=== PATIENT | male | born 1970 | race Caucasian/White ===

== ENCOUNTER → 2019-03-12 | Outpatient (CLI) | payer MEDICARE ==
--- NOTE | 2019-03-12 16:41 | RAD ---
CLINICAL HISTORY: bilateral edema COMPARISON: None available. TECHNIQUE: Ultrasound evaluation of both legs was performed from the groin to the upper calf with vergara scale, spectral and color doppler evaluation. FINDINGS: The bilateral common femoral vein, and femoral vein, including the saphenous-femoral junction are normal in appearance. Color and spectral Doppler evaluation demonstrates normal spontaneous flow, augmentation and phasicity. The bilateral popliteal vein and visualized calf veins also demonstrate normal compressibility and flow. IMPRESSION: No evidence for bilateral lower extremity DVT. Electronically signed by: Thomas Knott MD (03/12/2019 4:38 PM) [id number]
== END | disposition home or self-care (01) ==
LOC: US 14:41
PROVIDERS: ATTEND Internal Medicine
DX: R60.0 Localized edema (principal)
CPT/HCPCS: 93970

== ENCOUNTER 2020-02-25 10:06 | Emergency (ER) | payer MEDICARE ==
[~2020-02-25] VITALS: Ht 170.2 cm; Wt 93.1 kg
[2020-02-25 10:06] VITALS: BP 140/112
[2020-02-25 11:01] LABS: BASO % 1 % (0-3); EOS # 0.4 x10^3/uL (0.0-0.7); EOS % 5 % (0-3); HEMATOCRIT 44.2 % (39.0-53.0); HEMOGLOBIN 15.4 g/dL (13.0-17.5); LYMPH # 1.5 x10^3/uL (1.0-4.8); LYMPH % 20 % (24-48); MEAN CORPUSCULAR HEMOGLOBIN 36 pg (25-35); MEAN CORPUSCULAR HGB CONC 35 g/dL (31-37); MEAN CORPUSCULAR VOLUME 103 fL (79-100); MONO # 0.4 x10^3/uL (0.0-1.1); MONO % 5 % (0-9); NEUT # 5.3 x10^3uL (1.8-7.7); NEUT % 70 % (31-73); PLATELET COUNT 101 x10^3/uL (140-400); RED CELL DISTRIBUTION WIDTH 13.4 % (11.5-14.5); WHITE BLOOD COUNT 7.6 x10^3/uL (4.0-11.0)
[2020-02-25 11:05] LABS: CALCIUM 9.8 mg/dL (8.5-10.1); CREATININE 0.8 mg/dL (0.7-1.3); GFR 102.7; POTASSIUM 3.7 mmol/L (3.5-5.1)
[2020-02-25 11:08] LABS: ETHANOL < 10 mg/dL (0-10); SALIC 4.5 mg/dL (2.8-20.0)
[2020-02-25 11:09] LABS: ACETAMIN < 2.0 mcg/mL (10-30)
[2020-02-25 11:10] LABS: ALBUMIN/GLOBULIN RATIO 1.2 (1.0-1.7); MAGNESIUM 1.7 mg/dL (1.8-2.4); TOTAL BILIRUBIN 0.4 mg/dL (0.2-1.0); TOTAL PROTEIN 7.3 g/dL (6.4-8.2)
[2020-02-25 11:11] LABS: VAL ACID 19 mcg/mL (50-100)
[2020-02-25] MEDS ORDERED: LORazepam 1 MG TABLET PO ONE (11:15)
--- NOTE | 2020-02-25 12:36 | PHYS DOC ---
Past History Past Medical History: Anxiety, Hypertension, Schizophrenia Past Surgical History: Hip Replacement Smoking: Cigarettes Alcohol Use: None Drug Use: None General Adult EDM: Chief Complaint: ANXIETY/PANIC ATTACK HPI: HPI: 50 year old male with pmh of anxiety and schizophrenia presents with reports of suicidal ideation. [facility]. Patient reports he has developed a "tic" where he is unable to control his feet from moving or tapping. Reports it is constant and is "driving him crazy". Reports he was seen 2 days ago at ED and told to present to [facility] for adjustment of medications. Patient reports he stated maybe "he should just take all his medications at once to get the "tic" to stop". Patient reports he has had thoughts of hurting himself but nothing currently. When asked if he might still try taking all his medications to harm himself he states "I might." Patient reports he just wants his legs "to stop". Review of Systems: Review of Systems: Constitutional: Denies fever or chills Eyes: Denies change in visual acuity HENT: Denies nasal congestion or sore throat Respiratory: Denies cough or shortness of breath Cardiovascular: Denies chest pain or edema GI: Denies abdominal pain, nausea, or vomiting Musculoskeletal: Denies back pain or joint pain Neurologic: Denies headache, focal weakness or sensory changes Psychiatric: Reports anxiety Complete systems were reviewed and found to be within normal limits, except as documented in this note. Current Medications: Current Meds: Current Medications Medications (Trade) Dose Ordered Sig/Zaida Start Time Stop Time Status Last Admin Dose Admin Lorazepam (Ativan) 1 mg 1X ONCE 02/25/20 11:15 02/25/20 11:16 DC 02/25/20 11:29 1 MG Allergies: Allergies: Allergies Coded Allergies Type Severity Reaction Last Updated Verified prednisone Allergy Intermediate 02/25/20 Yes Physical Exam: PE: Constitutional: Well developed, well nourished, anxious, non-toxic appearance Eyes: PERRL, EOMI, conjunctiva normal, no discharge Neck: Normal range of motion, no tenderness, supple Cardiovascular: Heart rate normal, regular rhythm Lungs & Thorax: Bilateral breath sounds clear to auscultation, no wheezing Abdomen: Soft, no tenderness Skin: Warm, dry, no erythema, no rash Extremities: No tenderness, ROM intact, no edema Neurologic: Alert and oriented X 3, normal motor function, normal sensory function, no focal deficits noted, continued tic to bilateral legs Psychologic: Affect anxious, judgement normal, reports suicidal ideation recently but not currently Current Patient Data: Labs: Laboratory Tests Test 02/25/20 10:35 White Blood Count 7.6 x10^3/uL (4.0-11.0) Red Blood Count 4.30 x10^6/uL (4.30-5.70) Hemoglobin 15.4 g/dL (13.0-17.5) Hematocrit 44.2 % (39.0-53.0) Mean Corpuscular Volume 103 fL (79-100) H Mean Corpuscular Hemoglobin 36 pg (25-35) H Mean Corpuscular Hemoglobin Concent 35 g/dL (31-37) Red Cell Distribution Width 13.4 % (11.5-14.5) Platelet Count 101 x10^3/uL (140-400) L Neutrophils (%) (Auto) 70 % (31-73) Lymphocytes (%) (Auto) 20 % (24-48) L Monocytes (%) (Auto) 5 % (0-9) Eosinophils (%) (Auto) 5 % (0-3) H Basophils (%) (Auto) 1 % (0-3) Neutrophils # (Auto) 5.3 x10^3uL (1.8-7.7) Lymphocytes # (Auto) 1.5 x10^3/uL (1.0-4.8) Monocytes # (Auto) 0.4 x10^3/uL (0.0-1.1) Eosinophils # (Auto) 0.4 x10^3/uL (0.0-0.7) Basophils # (Auto) 0.0 x10^3/uL (0.0-0.2) Sodium Level 139 mmol/L (136-145) Potassium Level 3.7 mmol/L (3.5-5.1) Chloride Level 106 mmol/L (98-107) Carbon Dioxide Level 23 mmol/L (21-32) Anion Gap 10 (6-14) Blood Urea Nitrogen 14 mg/dL (8-26) Creatinine 0.8 mg/dL (0.7-1.3) Estimated GFR (Cockcroft-Gault) 102.7 BUN/Creatinine Ratio 18 (6-20) Glucose Level 115 mg/dL (70-99) H Calcium Level 9.8 mg/dL (8.5-10.1) Magnesium Level 1.7 mg/dL (1.8-2.4) L Total Bilirubin 0.4 mg/dL (0.2-1.0) Aspartate Amino Transferase (AST) 13 U/L (15-37) L Alanine Aminotransferase (ALT) 36 U/L (16-63) Alkaline Phosphatase 95 U/L (46-116) Total Protein 7.3 g/dL (6.4-8.2) Albumin 4.0 g/dL (3.4-5.0) Albumin/Globulin Ratio 1.2 (1.0-1.7) Salicylates Level 4.5 mg/dL (2.8-20.0) Salicylate Last Dose Date Unknown Salicylate Last Dose Time Unknown Acetaminophen Level < 2.0 mcg/mL (10-30) L Acetaminophen Last Dose Date Unknown Acetaminophen Last Dose Time Unknown Valproic Acid Level 19 mcg/mL (50-100) L Valproic Acid Last Dose Date 02/24/20 Valproic Acid Last Dose Time 2100 Ethyl Alcohol Level < 10 mg/dL (0-10) Vital Signs: Vital Signs Date Time Temp Pulse Resp B/P (MAP) Pulse Ox O2 Delivery O2 Flow Rate FiO2 02/25/20 10:06 98.0 108 24 140/112 (121) 99 Room Air EKG: EKG: [] Radiology/Procedures: Radiology/Procedures: [] Course & Med Decision Making: Course & Med Decision Making Pertinent Lab studies reviewed. (See chart for details) Patient presents from [facility] with concern for patient's statement of recent suicidal ideation. Patient reports he made the statement because of continued "tic" to bilateral lower legs in which he can't hold them still. Patient appears anxious. Hx of multiple psychiatric meds. Ativan PO given with some improvement. Patient had been seen for same recently at . Patient advise of need to follow with psychiatrist for adjustment of his medications. Patient back and forth regarding if he would harm himself/suicidal ideation. Decision to medically screen and have psychiatric assessment performed. Patient medically cleared. Psychiatric assessment performed and patient deems safe for discharge home with close follow-up with [facility] tomorrow. Safety plan signed. Patient stable for discharge home with outpatient follow-up with PCP and [facility]. Discussed findings and plan with patient, who acknowledges understanding and agreement. Arvind Disclaimer: Arvind Disclaimer: This electronic medical record was generated, in whole or in part, using a voice recognition dictation system. Departure Departure: Impression: Primary Impression: Suicidal ideation Additional Impressions: Anxiety Tic like phenomenon Disposition: HOME/RESIDENCE PRIOR TO ADM Condition: STABLE Referrals: TELLO VELEZ MD (PCP) Patient Instructions: Anxiety and Panic Attacks, [id number], Suicidal Feelings, How to Help Yourself, Tardive Dyskinesia Scripts Lorazepam (ATIVAN) 0.5 Mg Tablet 0.5 MG PO TID PRN PRN for ANXIETY / AGITATION, #14 TAB Prov: RUSS LEAL DO 02/25/20 RUSS LEAL DO February 25, 2020 12:36
[2020-02-25] MEDS ORDERED: MAGNESIUM CHLORIDE ER 64 MG TABLET.ER PO ONE (13:45)
[2020-02-25 13:50] LABS: BARBITURATES NEG (NEG); BENZODIAZEPINES NEG (NEG); CANNABINOIDS POS (NEG); COCAINE NEG (NEG); METHADONE NEG (NEG); OPIATES NEG (NEG); PHENCYCLIDINE NEG (NEG)
[2020-02-25 13:52] LABS: AMPHETAMINE/METHAMPHETAMINE NEG (NEG)
[2020-02-25 13:57] LABS: BILIRUBIN,URINE NEG (NEG); CLARITY,URINE CLEAR; COLOR,URINE YELLOW; GLUCOSE,URINE 100 mg/dL (NEG)
[2020-02-25 13:58] LABS: BACTERIA,URINE 0 /HPF (0-FEW); NITRITE,URINE NEG (NEG); SQUAMOUS EPITHELIAL CELL,UR OCC /LPF
[2020-02-25] MEDS ORDERED: LORA0.5T96 PO (15:40)
== END 2020-02-25 17:26 | disposition home or self-care (01) ==
LOC: ER 10:06
DX: R45.851 Suicidal ideations (principal); F41.9 Anxiety disorder, unspecified; F20.9 Schizophrenia, unspecified; Z88.8 Allergy status to other drugs, medicaments and biological substances
CPT/HCPCS: 36415; 80053; 80164; 80307; 80329; 81001; 83735; 85025; 99283; G0480